=== PATIENT | male | born 1950 | race Caucasian/White ===

== ENCOUNTER 2024-04-08 08:26 | Observation (INO) ==
--- NOTE | 2024-03-12 16:09 | PAT Medication Instructions ---
Medication Instructions Date of Service March 12, 2024 Home Medications ibuprofen 200 mg tablet 200 - 600 mg PO Q6H PRN Pain imipramine HCl 10 mg tablet 10 mg PO PM magnesium citrate 100 mg tablet 100 mg PO DAILY metoprolol succinate 50 mg tablet,extended release 24 hr 50 mg PO QAM ropinirole 1 mg tablet 1 mg PO HS salmon oil 1,000 mg-omega-3 fatty acids 210 mg capsule 1 cap PO DAILY tamsulosin 0.4 mg capsule 0.8 mg PO QAM terazosin 5 mg capsule 5 mg PO PM tizanidine 2 mg tablet 2 mg PO Q8H PRN Spasms tramadol 50 mg tablet 50 mg PO HS ASK your surgeon for instructions ibuprofen 200 mg tablet 200 - 600 mg PO Q6H PRN Pain STOP taking 2 weeks before surgery salmon oil 1,000 mg-omega-3 fatty acids 210 mg capsule 1 cap PO DAILY DO NOT take the morning of surgery magnesium citrate 100 mg tablet 100 mg PO DAILY Take morning of surgery With a small sip of water, OTHERWISE NOTHING TO EAT OR DRINK AFTER MIDNIGHT: metoprolol succinate 50 mg tablet,extended release 24 hr 50 mg PO QAM tamsulosin 0.4 mg capsule 0.8 mg PO QAM tizanidine 2 mg tablet 2 mg PO Q8H PRN Spasms (if needed) Take evening before surgery imipramine HCl 10 mg tablet 10 mg PO PM ropinirole 1 mg tablet 1 mg PO HS terazosin 5 mg capsule 5 mg PO PM tizanidine 2 mg tablet 2 mg PO Q8H PRN Spasms (if needed) tramadol 50 mg tablet 50 mg PO HS Other Notes If you have any questions please call us at [phone] or [phone] or [phone] or [phone]
--- NOTE | 2024-03-20 13:02 | Anesthesiology Consultation ---
Date of Service March 20, 2024 Assessment & Plan (1) Encounter for pre-operative examination: Plan - abnormal CXR: awaiting S PCP response to optimization form. PAT testing to be faxed to PCP. Patient contacted and denies any chest discomfort, shortness of breath, change when laying flat-states he feels completely at baseline. He states will contact his PCP in addition to our fax regarding further review/management of abnormal CXR. Surgeon's office made aware. Chart Review Chart Review: Pending: Refer to Additional Notes / Consult section and Patient seen in Pre Admission Testing Teaching & Discussion Pre-Anesthesia Teaching/Discussion Notes: Instructed NPO after midnight before surgery, except medications with 15 cc of water. Medication instructions provided according to the PAT guidelines. History Surgery Operation Date: 04/08/24 10:00 Proposed Procedures p Right Reverse Total Shoulder Arthroplasty - Óscar Elkins, Height/Weight Height: 5 ft 10 in Weight: 117.5 kg Allergies Allergy/AdvReac Type Severity Reaction Status Date / Time [id number] Reductase Allergy Intermediate Cramping Verified 03/11/24 11:21 Inhibitor of the Muscles Medications Home Medications Medication Instructions Recorded Confirmed Last Taken ibuprofen 200 mg tablet 200 - 600 mg PO Q6H PRN Pain 03/11/24 03/11/24 Unknown imipramine HCl 10 mg tablet 10 mg PO PM 03/11/24 03/11/24 Unknown magnesium citrate 100 mg tablet 100 mg PO DAILY 03/11/24 03/11/24 Unknown metoprolol succinate 50 mg 50 mg PO QAM 03/11/24 03/11/24 Unknown tablet,extended release 24 hr ropinirole 1 mg tablet 1 mg PO HS 03/11/24 03/11/24 Unknown salmon oil 1,000 mg-omega-3 fatty 1 cap PO DAILY 03/11/24 03/11/24 Unknown acids 210 mg capsule tamsulosin 0.4 mg capsule 0.8 mg PO QAM 03/11/24 03/11/24 Unknown terazosin 5 mg capsule 5 mg PO PM 03/11/24 03/11/24 Unknown tizanidine 2 mg tablet 2 mg PO Q8H PRN Spasms 03/11/24 03/11/24 Unknown tramadol 50 mg tablet 50 mg PO HS 03/11/24 03/11/24 Unknown Past Medical History Medical History (Updated 03/20/24 @ 13:33 by Kelley Delaney PA-C) Anxiety Arthritis BPH (benign prostatic hyperplasia) Chronic back pain Depression History of kidney stones (~2004) passed on own Hyperlipidemia borderline per pt - no meds Hypertension controlled, stable per pt Sleep apnea no device Patient denies h/o stroke, seizures, heart attack, heart failure, DM, blood clots/DVTs or blood transfusions. Exercise / Class Metabolic Activity II 4-5 Yardwork/Stairs/Walk up hill (denies chest discomfort or shortness of breath with one flight of stairs) Past Surgical History Surgical History History of carpal tunnel release right History of colonoscopy History of tooth extraction S/P epidural steroid injection L4 and L5 Past Anesthesia History No Hx of Anesthesia Complications and No Family Hx of Anesthesia Complications History of PONV No Hx of PONV and No Hx of Motion Sickness Social History Smoking Status: Former smoker Do You Dip or Chew Tobacco: No (quit 50 yrs ago) Smoking End Date: age 19 Hx Alcohol Use: Yes alcohol intake frequency: holidays/special occasions only Hx Substance Use: No substance use type: does not use Review of Systems Patient denies chest pain, shortness of breath, dyspnea on exertion, reflux, fever, chills, cough, wheezing, or palpitations. Physical Exam Vital Signs Vitals BP 127/59 P 91 TEMP 97.7 SP02 94% on RA RESP 19 Physical Patient resting comfortably in chair in no acute distress, alert and oriented, responding appropriately throughout visit Full cervical extension range of motion without pain TMD 3.5 finger breadths Mallampati Score 2 Dentition: one crown, denies chipped or loose teeth, caps, implants or bridges Lungs: normal respiratory effort. Good air movement, clear throughout to auscultation, no adventitious breath sounds Cardiac: regular rate and rhythm, no murmurs noted Carotid arteries: negative bruit bilat Lab Results Anesthesia Preop Results Results Anesthesia Widget: WBC 7.27 K/ul (4.8-10.8) 03/20/24 Hgb 14.7 g/dl (14.0-18.0) 03/20/24 Hct 42.3 % (42.0-52.0) 03/20/24 Plt 166 K/uL (130-400) 03/20/24 Na 140 mmol/L (136-145) 03/20/24 K 4.6 mmol/L (3.5-5.1) 03/20/24 Cl 105 mmol/L (98-107) 03/20/24 CO2 30 mmol/L (21-32) 03/20/24 BUN 19 mg/dl (6-23) 03/20/24 Creat 0.94 mg/dl (0.6-1.4) 03/20/24 Glucose Level 133 mg/dl (70-99(Fasting)) H 03/20/24 PT 10.9 Seconds (9.0-12.0) 03/20/24 PTT 28 Seconds (21-31) 03/20/24 INR 1.0 (0.9-1.1) 03/20/24 Blood Type O Positive 03/20/24 Antibody Screen NEGATIVE 03/20/24 Testing Electrocardiogram Date: 03/20/24 NSR, rate 73 bpm Chest X-Ray Date: 03/20/24 Atelectatic bands in right lung lower zone Lobulated appearance of both francisco raising the suspicion of lymph nodes. Bilateral hilar and perihilar vascular congestion also seen Blunting of left costophrenic angle likely due to pleural thickening/effusion. Ultrasound is advised Stress Test Date: 01/23/23 MPHR 100% METS 8 Negative for inducible ischemia EF 55-59% Moderate cLVH Grade II diastolic dysfunction Mildly calcified aortic valve, mildly reduced aortic valve opening without aortic stenosis
[~2024-04-08 08:26] MED LIST: BUPIVACAINE 0.5 % 5 MG/1 ML PF 10ML VIAL ONE
[2024-04-08] MEDS: LR 60ML/HR IV SCH (08:35)
[2024-04-08] MEDS: LACTATED RINGER'S 1,000 ML IV SCH (08:35)
[2024-04-08] MEDS: GABAPENTIN 300 MG CAP PO SCH (08:36)
[2024-04-08] MEDS: FAMOTIDINE 20 MG TAB PO SCH (08:36)
[2024-04-08] MEDS: ACETAMINOPHEN 500 MG TAB PO SCH ×2 (08:36→13:59)
[2024-04-08] MEDS: dexAMETHasone**PF** 10 MG/ML VIAL IV SCH (08:36)
--- OUTSIDE RECORDS SUMMARY | 2024-04-08 09:25 | External Medical Summary | Summary of Care ---
Author Name Unknown Organization [facility] [address] [facility] [address] Phone [phone] Care Team Providers Care Rn Rehabilitation Name Role Phone Neida Smalls DO Primary Care Provider [phone] Encounter Details Date Type Department Care Team (Late st Contact Info) Description [facility]29[facility]2024 [facility] [address] [phone] Álvaro Machado PA-C [address] [place] [address] Allergies Active Allergy Reactions Criticality Noted Date Comments Lisinopril Cough 06/04/2009 Cough Perflutren Lipid Microspheres Other (Please comment) Medium 01/23/2023 Pt with long-standing chronic lower back pain had acute episode of back pain during a stress echo that included the use of Definity (perflutren). Pt stated that this episode was different than his usual lower back pain. Pain resolved completely within several minutes. Statins 03/15/2019 documented as of this encounter (statuses as of 04/04/2024) Medications Nutritional Supplements (SALMON OIL) CAPS Take by mouth daily. 9 Active Ibuprofen 200 MG Oral Tablet Take 3 Tablets by mouth every 6 hours as needed. Active Meloxicam 15 MG Oral Tablet (Mobic) Take 1 Tablet by mouth in the morning. 90 Tablet 1 4 Active tiZANidine HCl 2 MG Oral Tablet (Zanaflex)Indica tions:Restless legs,Lumbar radicular pain TAKE 1 TABLET BY MOUTH NEEDED AT BEDTIME FOR MUSCLE SPASM. 90 Tablet 1 4 Active Terazosin HCl 5 MG Oral Capsule (Hytrin)Indicati ons:HTN, goal below 130/80 Take 1 Capsule by mouth in the morning. Every morning.. 90 Capsule 3 4 Active Imipramine HCl 10 MG Oral Tablet (Tofranil)Indica tions:BABS (generalized anxiety disorder) Take 1 Tablet by mouth at bedtime. 90 Tablet 3 4 Active Metoprolol Succinate ER 50 MG Oral Tablet Extended Release 24 Hour (toPROL XL)Indications:H TN, goal below 130/80 Take 1 Tablet by mouth in the morning. In the morning.. 90 Tablet 3 4 Active rOPINIRole HCl 1 MG Oral Tablet (Requip)Indicati ons:Restless legs Take 1 Tablet by mouth at bedtime. 90 Tablet 3 4 Active Tamsulosin HCl 0.4 MG Oral Capsule (Flomax)Indicati ons:BPH with obstruction/lowe r urinary tract symptoms Take 2 Capsules by mouth in the morning. 180 Capsule 3 4 Active traMADol HCl 50 MG Oral Tablet (Ultram)Indicati ons:Lumbar radicular pain Take 2 Tablets by mouth 2 times a day as needed for Pain, Moderate. Dx M54.16 120 Tablet 5 5 Active documented as of this encounter (statuses as of 04/04/2024) Active Problems Problem Noted Date Diagnosed Date Moderate aortic valve stenosis 05/04/2022 BABS (generalized anxiety disorder) 10/10/2018 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 Cyst of kidney, acquired 12/10/2013 Dyslipidemia 11/22/2013 Overview (10/13/2017): 10/13/2017: declines statin, "caused him problems in the past" HTN, goal below 130/80 11/22/2013 documented as of this encounter (statuses as of 04/04/2024) Resolved Problems Problem Noted Date Diagnosed Date Resolved Date 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 07/12/2016 Other specified disorder of gallbladder 11/22/2013 07/12/2016 Psychosexual dysfunction wit h inhibited sexual excitement 11/22/2013 07/12/2016 documented as of this encounter (statuses as of 04/04/2024) Immunizations Name Administration Dates Next Due COVID-19 mRNA, LNP-s, No Pre serve, 2-Dose Series (Moderna) 07/19/2021,12/02/2020,04/09/2020,03/13 COVID-19, MRNA-LNP, PF, 50 M CG/0.5 mL, 12 YRS AND ABOVE, IM (MODERNA-Spikevax) 12/20/2022 Covid-19 Rs-nanoparticle+mat dian-m1, Adjuvant, (Novavax) 12/05/2023 Pneumococcal Conjugate Vacc, 13 Valent (Prevnar) 10/08/2019,01/19/2016 Pneumococcal Polysaccharide PPV23 (Pneumovax) 09/21/2017,05/23/2012 Season Influenza, Quad, PF, Adjuvanted, 65+ Yrs, IM (FLUAD) 10/08/2019 Seasonal Influenza Vac., MDV , IM, 0.5 mL (Fluzone) 12/05/2012,11/23/2011,11/18/2010 Seasonal Influenza Virus Vac cine, Unspecified Formulation 11/14/2017 Seasonal Influenza, PF, 6 M & above, IM , (FluLaval or Fluzone) 10/10/2018 Seasonal Influenza, Quadriva lent Hd (Fluzone Hd) 11/10/2022,11/01/2021,11/17/2020 Seasonal Influenza, Trivalen t, Adjuvanted, 65+ YRS, PF, (Fluad) 12/05/2023 TDAP (age 10 and older)(Boostrix) 10/24/2019 TDAP, Age 7 and older, IM (Adacel) 06/10/2008 Varicella Zoster Vaccine (Adult) 02/18/2011 Zoster Vaccine Recombinant (Shingrix) 07/12/2022 ,05/04/2022 documented as of this encounter Social History Tobacco Use Types Packs/Day Years Used Date Smoking Tobacco: Never Passive Smoke Exposure: Never Smokeless Tobacco: Never Alcohol Use Standard Drinks/Week Comments Yes 0 (1 standard drink = 0.6 oz pur e alcohol) occasional beer 1-3 a year PHQ-2 Answer Date Recorded PHQ Adult Total Score 1 02/06/2024 Hunger Vital Sign Answer Date Recorded Within the past 12 months, y ou worried that your food would run out before you got the money to buy more. Never true 02/05/20 24 Within the past 12 months, t he food you bought just didn't last and you didn't have money to get more. Never true 02/05/2024 Childcare Answer Date Recorded Do you feel overwhelmed with taking care of a child, family member or friend? No 02/05/2024 Does your family need help f inding childcare? (Household - for ages 0-17 years) Not on file 02/05/2024 Clothing Answer Date Recorded Have you been unable to get clothing when it was really needed? No 02/05/2024 Is your family able to get c lothes or diapers when needed? (Household - for ages 0-17 years) Not on file 02/05/2024 Personal Safety Answer Date Recorded Do you feel unsafe or have concerns for your saf ety? No 02/05/2024 Do you have concerns for you r family's safety? (Household - for ages 0-17 years) Not on file 02/05/2024 Utilities Answer Date Recorded Do you have trouble paying y our heating, water, or electric bill? No 02/05/2024 Is your family able to pay t he heat, water, or electric bill? (Household - for ages 0-17 years) Not on file 02/05/2024 Does your family have access to good internet? (Household - for ages 0-17 years) Not on file 02/05/2024 Employment Status Answer Date Recorded Are you unemployed or without regular income? No 02/05/2024 Does the household have a re lar source of income? (Household - for ages 0-17 years) Not on file 02/05/2024 Social Connections Answer Date Recorded How often do you feel lonely or isolated from th ose around you? Never 02/05/2024 Financial Resource Strain Answer Date R ecorded Do you have any trouble payi ng for your medications, or do you think you might in the future? No 02/05/2024 Does your family have troubl e paying for medicine? (Household - for ages 0-17 years) Not on file 02/05/2024 Transportation Needs Answer Date Record ed Do you have trouble getting a ride to medical visits or work? (Adult - for ages 18 years and over) Not on file 02/05/2024 Does your family have a hard time getting a ride to doctors visits? (Household - for ages 0-17 years) Not on file 02/05/2024 Has lack of transportation k ept you from medical appointments, meetings, work, or from getting things needed for daily living? Check all that apply. No 02/05/2024 Do you (or your family) have trouble finding or paying for a ride (transportation)? (Household - for ages 0-17 years) Not on file 02/05/2024 Housing Stability Answer Date Recorded Do you currently live in a s helter or have no steady place to sleep at night? No 02/05/2024 Do you think you are at risk of becoming homeless? (Adult - for ages 18 years and over) Not on file 02/05/2024 Does your family worry about paying for your home or becoming homeless? (Household - for ages 0-17 years) Not on file 1 Are you homeless or worried that you might be in the future? No 02/05/2024 Are you (or your family) maria del carmen eless or worried that you might be in the future? (Household - for ages 0-17 years) Not on file Food Insecurity Answer Date Recorded Do you need food for this week? No 02/05/2024 Are you able to get enough f ood for your family? (Household - for ages 0-17 years) Not on file 02/05/2024 Does your family need food t his week? (Household - for ages 0-17 years) Not on file 02/05/2024 Do you always have enough fo od for your family? (Household - for ages 0-17 years) Not on file 02/05/2024 Food Insecurity Answer Date Recorded Within the past 12 months, y ou worried that your food would run out before you got the money to buy more. Never true 02/05/20 24 Within the past 12 months, t he food you bought just didn't last and you didn't have money to get more. Never true 02/05/2024 Do you need food for this week? No 02/05/2024 Sex and Gender Information Value Date Recorded Sex Assigned at Male 10/10/2018 8:37 AM EDT Legal Sex Male 6:34 AM EST Gender Identity Male 10/10/2018 8:37 AM EDT Sexual Orientation Straight 10/10/2018 8: 37 AM EDT Occupation Industry Job Start Date Job End Date Retired Not on file Not on file Not on file documented as of this encounter Miscellaneous Notes * Telephone Encounter - Neida Small OSA - 04/01/2024 3:48 PM EST Done 04/01/2024 * Telephone Encounter - Tyler Tate OSA - 03/29/2024 1:03 PM EST Called LMOM to call back to schedule * Telephone Encounter - Álvaro Machado PA-C - 03/29/2024 7:39 AM EST Please assist in scheduling chest CT. This is needed in order for clearance for shoulder surgery currently scheduled 04/08/24. documented in this encounter Plan of Treatment Upcoming Encounters Date Type Department Care Team (Latest Contact Info) Description 05/24/2024 7:53 AM EDT Hospital Encounter [facility] [address] [place], [place] [address] [phone] Stiven Mortensen, [address] [place] [phone] 05/24/2024 7:53 AM EDT - 05/24/2024 8:14 AM EDT Surgery OR [facility], Operating Room [facility] [address] [place] [address] [place] [phone] Stiven Mortensen, [address] [place] [phone] INJECTION SPINE LUMBAR OR SACRAL 08/08/2024 10:40 AM EDT Office Visit [facility] [address] [place] [address] Obie Pacheco MD [address] [place] [phone] 09/18/2024 1:50 PM EDT Office Visit Dermatology, [facility] [address] [place] [address] Anjelica Allen PA-C [address] [address] Scheduled Procedures Name Priority Associated Diagnoses Date/Ti me INJECTION SPINE LUMBAR OR SACRAL Lumbar radiculopathy 05/24/2024 7:53 AM EDT Health Maintenance Due Date Last Done Comments Cologuard 1994 Sigmoidoscopy 1994 Fecal Occult Blood Test 01/18/2017 01/19/2016, 12/23 Adult Wellness Visit 09/21/2021 09/21/2020 Depression Screening 02/05/2025 02/06/2024 GFR 03/20/2025 03/20/2024, 04/0 06/2023, 11/10/2022, Additional history exists Albumin/Creatinine Ratio 05/11/2026 05/12/2023, 05/07 Lipid Panel 08/30/2028 08/31/2023, 04/0 06/2023, 11/10/2022, Additional history exists DTap/Tdap Vaccines (3 - Td or Tdap) 10/23/2029 10/24/2019, 06/10/2008 Colonoscopy 05/26/2031 05/25/2021, 05/25/2021 Colorectal Cancer Screening 05/26/2031 Pneumococcal Vaccine: 50+ Years Completed 10/08/2019, 09/21/2017, 01/19/2016, Additional history exists Zoster Vaccines Completed 07/12/2022, 04/07, 02/18/2011 COVID-19 Vaccine Discontinued 12/05/2023, , 07/19/2021, Additional history exists Influenza Vaccine (FLU shot) Completed 12/05/2023, 11/10/2022, 11/01/2021, Additional history exists HPV (Gardasil) Vaccine Aged Out No lo nger eligible based on patient's age to complete this topic Hepatitis B Vaccine Aged Out No longe r eligible based on patient's age to complete this topic MENINGOCOCCAL (MENACTRA/MENVEO) Aged Out No longer eligible based on patient's age to complete this topic Meningitis B Vaccine (Bexsero/Trumemba) Aged Out No longer eligible based on patient's age to complete this topic documented as of this encounter Medical Devices Not on filedocumented as of this encounter Care Teams Rn Rehabilitation Relationship Specialty Start Date End Date Neida Smalls DO [address] [phone] PCP - General Family Medicine 10/15/19 documented as of this encounter
--- OUTSIDE RECORDS SUMMARY | 2024-04-08 09:25 | External Medical Summary | Summary of Care ---
Author Name Unknown Organization [facility] Address [address] [facility] [address] Phone [phone] Care Team Providers Care Glass Breaker Name Role Phone Neida Smalls DO Primary Care Provider [phone] Reason for Referral * Precert (Within 10 days (routine)) - Authorized Specialty Diagnoses / Procedures Referred By Contac t Referred To Contact Radiology Diagnoses Abnormal chest x-ray Procedures CT CHEST WO CONTRAST Álvaro Machado PA-C [address] [address] Phone: tel: fax: Referral ID Status Reason Start Date Expiration Date V isits Requested Visits Authorized [id number] Authorized 03/29/2024 999 999 Reason for Visit * Reason Comments pre-op exam Patient is here for a preop exam for R shoulder replacement on 04/08/[address] Elkins at [facility]. Encounter Details Date Type Department Care Team (Late st Contact Info) Description 03/27/2024 9:40 AM EST Office Visit [facility] Sherif Barcenas [address] [phone] Álvaro Machado PA-C [address] [address] Preop examination*; Osteoarthritis of right shoulder, unspecified osteoarthritis type; At risk for sleep apnea; Abnormal chest x-ray Allergies Active Allergy Reactions Criticality Noted Date [...] 02/05/2024 Does the household have a re gular source of income? (Household - for ages [...] on file documented as of this encounter Last Filed Vital Signs Vital Sign Reading Time Taken Comments Blood Pressure 128/77 03/27/2024 9:44 AM EST Pulse 67 03/27/2024 9:44 AM EST Temperature 36.7 C (98 F) 03/27/2024 9:44 AM EST Respiratory Rate 18 03/27/2024 9:44 AM EST Oxygen Saturation 99% 03/27/2024 9:44 AM EST Inhaled Oxygen Concentration - - Weight 116.9 kg (257 lb 11.2 oz) 03/27/2024 9:44 AM EST Height - - Body Mass Index 36.98 02/06/2024 9:16 AM EST documented in this encounter Nursing Notes * Bonnie Brown LPN - 03/27/2024 9:44 AM EST The patient has been properly identified by confirmation of name and date of . Chief Complaint Patient presents with pre-op exam Patient is here for a preop exam for R shoulder replacement on 04/08/[address] Elkins at [facility]. documented in this encounter Plan of Treatment Upcoming Encounters Date Type Department Care Team (Latest Contact Info) Description 05/24/2024 7:53 AM EDT Hospital Encounter OR OSHP, Operating Room OSHP [address] [place] [address] [place] [address] Stiven Mortensen, [address] [place] [phone] 05/24/2024 7:53 AM EDT - 05/24/2024 8:14 AM EDT Surgery OR OS, Operating Room [address] [place] [address] Stiven Mortensen, [address] [place] [phone] INJECTION SPINE LUMBAR OR SACRAL 08/08/2024 10:40 AM EDT Office Visit Family [facility] [address] [address] Obie Pacheco MD [address] [place] [address] 09/18/2024 1:50 PM EDT Office Visit Dermatology, [facility] [address] [address] Anjelica Allen PA-C [address] [address] Scheduled Procedures Name Priority Associated Diagnoses Date/Ti me INJECTION SPINE LUMBAR OR SACRAL Lumbar radiculopathy 05/24/2024 7:53 AM EDT Health Maintenance Due Date Last Done Comments Cologuard 1994 Sigmoidoscopy 1994 Fecal Occult Blood Test 01/18/2017 01/19/2016, 12/23 Adult Wellness Visit 09/21/2021 09/21/2020 Depression Screening 02/05/2025 02/06/2024 GFR 03/20/2025 03/20/2024, 04/0 06/2023, 11/10/2022, Additional history exists Albumin/Creatinine Ratio 05/11/2026 05/12/2023, 04/1 04/2021 Lipid Panel 08/30/2028 08/31/2023, 04/0 06/2023, 11/10/2022, [...] Not on filedocumented as of this encounter Procedures Procedure Name Priority Date/Time Associated Diagnosis Comments CT CHEST WO CONTRAST Routine 04/01/2024 2:32 PM EST Abnormal chest x-ray XR CHEST 2 VIEWS Routine 03/27/2024 10:3 3 AM EST Preop examination documented in this encounter Results * CT CHEST WO CONTRAST (04/01/2024 2:32 PM EST) Anatomical Region Laterality Modality Chest, Body, Cardio Computed Noah ography 04/04/2024 1:41 AM EST Impressions 04/04/2024 1:39 AM EST IMPRESSION: 1. No evidence of pneumonia, pulmonary edema, or pulmonary fibrosis. 2. No pleural effusion, pneumothorax or appreciable pleural thickening. Prominent left pericardial fat pad and minimal adjacent atelectasis could result in recent chest radiographic finding. 3. Additional findings as above. Narrative 04/04/2024 1:39 AM EST EXAM EXAM: CT CHEST WO CONTRAST DATE and TIME: 04/01/2024 2:32 pm HISTORY Abnormal CXR - blunting left costophrenic angle; preop clearance TECHNIQUE Contiguous CT sections of the chest obtained without contrast material from the lung apices to the upper abdomen. Subsequent coronal, sagittal, and maximal intensity post-processed reformations were created on the CT workstation. COMPARISON XR CHEST 2 VIEWS, ACC: [id number], dated 2024-03-27 10:33:44; POINT OF CARE US MAJOR JOINT INJECTION, ORTHO, ACC: [id number], dated 2022-02-21 11:08:23; CT ABD_PELVIS WO IV_ORAL CONTRAST, ACC: [id number], dated 2021-11-10 21:39:36 FINDINGS Note: Evaluation of viscera and vessels limited in the absence of IV contrast. LINES AND DEVICES: None. Chest Wall and Lower Neck: There is a 10 millimeter peripherally calcified left thyroid nodule. Mediastinum and lymph nodes: No thoracic adenopathy by CT size criteria. Evaluation of hilar lymphadenopathy is limited in the absence of IV contrast. No mediastinal mass. Cardiovascular: Moderate aortic valve and coronary artery calcification. No significant pericardial effusion. Prominent left pericardial fat pad and minimal adjacent atelectasis, e.g. 6-64.. Lung, Airways and Pleura: No focal consolidation or geographic groundglass. No honeycombing. No pneumothorax or pleural effusion. The central airways are patent. Minimal linear scarring in the right lower lobe 10-156 likely sequela prior infection/inflammation. Upper Abdomen: Partially visualized Bosniak 2 right renal cyst with calcified septae as before. Hepatic steatosis. Bones: No acute fracture, malalignment or focal osseous destruction. Procedure Note Óscar Samson MD - 04/04/2024 EXAM EXAM: CT CHEST WO CONTRAST DATE and TIME: 04/01/2024 2:32 pm HISTORY Abnormal CXR - blunting left costophrenic angle; preop clearance TECHNIQUE Contiguous CT sections of the chest obtained without contrast materialfrom the lung apices to the upper abdomen. Subsequent coronal, sagittal,and maximal intensity post-processed reformations were created on the CTworkstation. COMPARISON XR CHEST 2 VIEWS, ACC: [id number], dated 2024-03-27 10:33:44; POINT OF CARE US MAJOR JOINT INJECTION, ORTHO, ACC: [id number], [id number] 11:08:23; CT ABD_PELVIS WO IV_ORAL CONTRAST, ACC: [id number], dated 1926-26-3720:39:36 FINDINGS Note: Evaluation of viscera and vessels limited in the absence of IVcontrast. LINES AND DEVICES: None. Chest Wall and Lower Neck: There is a 10 millimeter peripherally calcifiedleft thyroid nodule. Mediastinum and lymph nodes: No thoracic adenopathy by CT size criteria.Evaluation of hilar lymphadenopathy is limited in the absence of IVcontrast. No mediastinal mass. Cardiovascular: Moderate aortic valve and coronary artery calcification.No significant pericardial effusion. Prominent left pericardial fat padand minimal adjacent atelectasis, e.g. 6-64.. Lung, Airways and Pleura: No focal consolidation or geographicgroundglass. No honeycombing. No pneumothorax or pleural effusion. Thecentral airways are patent. Minimal linear scarring in the right lowerlobe 10-156 likely sequela prior infection/inflammation. Upper Abdomen: Partially visualized Bosniak 2 right renal cyst withcalcified septae as before. Hepatic steatosis. Bones: No acute fracture, malalignment or focal osseous destruction. IMPRESSION IMPRESSION: 1. No evidence of pneumonia, pulmonary edema, or pulmonary fibrosis. 2. No pleural effusion, pneumothorax or appreciable pleural thickening.Prominent left pericardial fat pad and minimal adjacent atelectasis couldresult in recent chest radiographic finding. 3. Additional findings as above. us Rea L MacNamara PA-C RAD CT Final Res ult * XR CHEST 2 VIEWS (03/27/2024 10:33 AM EST) Anatomical Region Laterality Modality Chest Digital Radiogra phy 03/27/2024 2:04 PM EST Impressions 03/27/2024 2:01 PM EST IMPRESSION No pulmonary consolidations. Minimal blunting of the left costophrenic angle noted which may be secondary to scarring or a trace pleural effusion. Narrative 03/27/2024 2:01 PM EST EXAM XR CHEST 2 VIEWS-03/27/2024 10:33 am HISTORY Preop COMPARISON None TECHNIQUE Chest x-ray two views FINDINGS The cardiomediastinal silhouette is normal in size. There are no pulmonary consolidations. Minimal blunting of the left costophrenic angle. There is no acute bone abnormality. Procedure Note Heidi Krueger MD - 03/27/2024 EXAM XR CHEST 2 VIEWS-03/27/2024 10:33 am HISTORY Preop COMPARISON None TECHNIQUE Chest x-ray two views FINDINGS The cardiomediastinal silhouette is normal in size. There are nopulmonary consolidations. Minimal blunting of the left costophrenicangle. There is no acute bone abnormality. IMPRESSION IMPRESSION No pulmonary consolidations. Minimal blunting of the left costophrenicangle noted which may be secondary to scarring or a trace pleuraleffusion. Ávlaro Machado PA-C RADIOLOGY (RAD GENERAL) F inal Result documented in this encounter Visit Diagnoses Diagnosis Preop examination- Primary Preoperative examination, unspecified Osteoarthritis of right shoulder, unspecified osteoarthritis type At risk for sleep apnea Abnormal chest x-ray Other nonspecific abnormal finding of lung field Lumbar radiculopathy Thoracic or lumbosacral neuritis or radiculitis, unspecified documented in this encounter Care Teams Glass Breaker Relationship Specialty Start Date End Date Neida Smalls DO [address] [place] [address] PCP - General Family Medicine 10/15/19 documented as of this encounter
--- OUTSIDE RECORDS SUMMARY | 2024-04-08 09:26 | External Medical Summary | Summary of Care ---
Author Name Unknown Organization [facility] Address [address] [facility] [address] Phone [phone] Care Team Providers Care Detective Bureau Chief Name Role Phone Neida Smalls DO Primary Care Provider [phone] Reason for Referral * Precert (Within 10 days (routine)) - Authorized Specialty Diagnoses / Procedures Referred By Contac t Referred To Contact Radiology Diagnoses Abnormal chest x-ray Procedures CT CHEST WO CONTRAST Álvaro Machado PA-C [address] [address] Phone: tel: fax: Referral ID Status Reason Start Date Expiration Date V isits Requested Visits Authorized [id number] Authorized 03/29/2024 999 999 Reason for Visit * Reason Comments pre-op exam Patient is here for a preop exam for R shoulder replacement on 04/08/[address] Elkins at [facility]. Encounter Details Date Type Department Care Team (Late st Contact Info) Description 03/27/2024 9:40 AM EST Office Visit [facility] Sherif Barcenas [address] [phone] Álvaro Machado PA-C [address] [address] Preop examination*; Osteoarthritis of right shoulder, unspecified [...] as of this encounter (statuses as of 03/29/2024) Medications Nutritional Supplements (SALMON OIL) CAPS Take [...] as of this encounter (statuses as of 03/29/2024) Active Problems Problem Noted Date Diagnosed Date Moderate aortic valve stenosis 05/04/2022 BABS (generalized anxiety disorder) 10/10/2018 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 Cyst of kidney, acquired 12/10/2013 Dyslipidemia 11/22/2013 Overview (10/13/2017): 10/13/2017: declines statin, "caused him problems in the past" HTN, goal below 130/80 11/22/2013 documented as of this encounter (statuses as of 03/29/2024) Resolved Problems Problem Noted Date Diagnosed Date Resolved Date 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 Elkins at [facility]. documented in this encounter Plan of Treatment Upcoming Encounters Date Type Department Care Team (Latest Contact Info) Description 05/24/2024 7:53 AM EDT Hospital Encounter OR OSHP, Operating Room OSHP [address] [place] [address] [place] [address] Stiven Mortensen, [address] [place] [phone] 05/24/2024 7:53 AM EDT - 05/24/2024 8:14 AM EDT Surgery OR OS, Operating Room [address] [place] [address] Stiven Mortensen, [address] [place] [phone] INJECTION SPINE LUMBAR OR SACRAL 08/08/2024 10:40 AM EDT Office Visit Family [facility] [address] [address] Obie Pacheco MD [address] [place] [address] 09/18/2024 1:50 PM EDT Office Visit Dermatology, [facility] [address] [address] Anjelica Allen PA-C [address] [id number] Scheduled Orders Name Type Priority Associated Diagnoses Orde r Schedule CT CHEST WO CONTRAST Medical Imaging Routine Abnormal chest x-ray Ordered: 03/29/2024 Scheduled Procedures Name Priority Associated Diagnoses Date/Ti [...] Procedure Name Priority Date/Time Associated Diagnosis Comments XR CHEST 2 VIEWS Routine 03/27/2024 10:3 3 AM EST Preop examination documented in this encounter Results * XR CHEST 2 VIEWS (03/27/2024 10:33 [...] secondary to scarring or a trace pleuraleffusion. Álvaro Machado PA-C RADIOLOGY (RAD GENERAL) F inal Result documented in this encounter Visit Diagnoses Diagnosis Preop examination- Primary Preoperative examination, unspecified Osteoarthritis of right shoulder, unspecified osteoarthritis type At risk for sleep apnea Abnormal chest x-ray Other nonspecific abnormal finding of lung field Lumbar radiculopathy Thoracic or lumbosacral neuritis or radiculitis, unspecified documented in this encounter Care Teams Detective Bureau Chief Relationship Specialty Start Date End Date Neida Smalls DO [address] [place] [address] PCP - General Family Medicine 10/15/19 documented as of this encounter
--- OUTSIDE RECORDS SUMMARY | 2024-04-08 09:26 | External Medical Summary | Summary of Care ---
Author Name Unknown Organization [facility] Address [address] [facility] [address] Phone [phone] Care Team Providers Care Superintendent Automotive Name Role Phone Neida Smalls DO Primary Care Provider [phone] Encounter Details Date Type Department Care Team (Late st Contact Info) Description 03/20/2024 Result Scan Unspecified Department <No scans attached> Allergies Active Allergy Reactions Criticality Noted Date [...] as of this encounter (statuses as of 03/25/2024) Medications Nutritional Supplements (SALMON OIL) CAPS Take [...] as of this encounter (statuses as of 03/25/2024) Active Problems Problem Noted Date Diagnosed Date Moderate aortic valve stenosis 05/04/2022 BABS (generalized anxiety disorder) 10/10/2018 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 Cyst of kidney, acquired 12/10/2013 Dyslipidemia 11/22/2013 Overview (10/13/2017): 10/13/2017: declines statin, "caused him problems in the past" HTN, goal below 130/80 11/22/2013 documented as of this encounter (statuses as of 03/25/2024) Resolved Problems Problem Noted Date Diagnosed Date Resolved Date 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 07/12/2016 Other specified disorder of gallbladder 11/22/2013 07/12/2016 Psychosexual dysfunction wit h inhibited sexual excitement 11/22/2013 07/12/2016 documented as of this encounter (statuses as of 03/25/2024) Immunizations Name Administration Dates Next Due COVID-19 [...] on file documented as of this encounter Plan of Treatment Upcoming Encounters Date Type Department Care Team (Late st Contact Info) Description 03/30/2024 8:00 AM EST Office Visit [facility] [address] [address] Sparkle Beckett PA-C [address] [place] [address] [place] [address] 08/08/2024 10:40 AM EDT Office Visit [facility] [address] [address] Obie Pacheco MD [address] [address] 09/18/2024 1:50 PM EDT Office Visit Dermatology, [facility] [address] [address] [address] Anjelica Allen PA-C [address] [address] Scheduled Procedures Name Priority Associated Diagnoses Date/Ti me INJECTION SPINE LUMBAR OR SACRAL Lumbar radiculopathy Health Maintenance Due Date Last Done Comments Cologuard 1994 Sigmoidoscopy 1994 Fecal Occult Blood Test 01/18/2017 01/19/2016, 12/23 Adult Wellness Visit 09/21/2021 09/21/2020 Depression Screening 02/05/2025 02/06/2024 GFR 03/20/2025 03/20/2024, 040 06/2023, 11/10/2022, Additional history exists Albumin/Creatinine Ratio 05/11/2026 05/12/2023, 1 04/2021 Lipid Panel 08/30/2028 08/31/2023, 04/0 06/2023, [...] Procedure Name Priority Date/Time Associated Diagnosis Comments EKG SCANNED RESULT 03/20/2024 documented in this encounter Results * EKG SCANNED RESULT (03/20/2024) 03/20/2024 us No Physician Data Unknown EKG Final Result documented in this encounter Care Teams Superintendent Automotive Relationship Specialty Start Date End Date Neida Smalls DO [address] [place] [address] PCP - General Family Medicine 10/15/19 documented as of this encounter
--- OUTSIDE RECORDS SUMMARY | 2024-04-08 09:26 | External Medical Summary | Summary of Care ---
Author Name Unknown Organization [facility] Address [address] [address] Phone [phone] Care Team Providers Care Costing Manager Name Role Phone Neida Smalls DO Primary Care Provider [phone] Encounter Details Date Type Department Care Team (Late st Contact Info) Description [facility] [address] [phone] Álvaro Machado [...] as of this encounter (statuses as of 04/02/2024) Medications Nutritional Supplements (SALMON OIL) CAPS Take [...] as of this encounter (statuses as of 04/02/2024) Active Problems Problem Noted Date Diagnosed Date Moderate aortic valve stenosis 05/04/2022 BABS (generalized anxiety disorder) 10/10/2018 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 Cyst of kidney, acquired 12/10/2013 Dyslipidemia 11/22/2013 Overview (10/13/2017): 10/13/2017: declines statin, "caused him problems in the past" HTN, goal below 130/80 11/22/2013 documented as of this encounter (statuses as of 04/02/2024) Resolved Problems Problem Noted Date Diagnosed Date Resolved Date 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 07/12/2016 Other specified disorder of gallbladder 11/22/2013 07/12/2016 Psychosexual dysfunction wit h inhibited sexual excitement 11/22/2013 07/12/2016 documented as of this encounter (statuses as of 04/02/2024) Immunizations Name Administration Dates Next Due COVID-19 [...] Hospital Encounter OR OSHP, Operating Room OSHP [address] [place], [place] [address] [phone] Stiven Mortensen, [address] [place] [address] 05/24/2024 7:53 AM EDT - 05/24/2024 8:14 AM EDT Surgery OR OSHP, Operating Room OSHP [address] [place] [address] [place] [phone] Stiven Mortensen, [address] [place] [phone] INJECTION SPINE LUMBAR OR SACRAL 08/08/2024 10:40 AM EDT Office Visit [facility] [address] [place] [address] Obie Pacheco MD [address] [place] [address] 09/18/2024 1:50 PM EDT Office Visit Dermatology, [facility] [address] [place] [address] Anjelica Allen PA-C [address] [address] Scheduled Procedures Name Priority Associated Diagnoses Date/Ti [...] filedocumented as of this encounter Care Teams Costing Manager Relationship Specialty Start Date End Date Neida Smalls DO [address] [address] PCP - General Family Medicine 10/15/19 documented as of this encounter
--- OUTSIDE RECORDS SUMMARY | 2024-04-08 09:26 | External Medical Summary | Summary of Care ---
Author Name Unknown Organization [facility] Address [address] [place] [facility] [place] [address] Phone [phone] Care Team Providers Care Floor Sweeper Name Role Phone Neida Smalls DO Primary Care Provider [phone] Reason for Visit * Precert (Within 10 days (routine)) - Authorized Specialty Diagnoses / Procedures Referred By Contac t Referred To Contact Radiology Diagnoses Abnormal chest x-ray Procedures CT CHEST WO CONTRAST Álvaro Machado, PA-C [address] [facility] [place] [address] Phone: tel: fax: Referral ID Status Reason Start Date Expiration Date V isits Requested Visits Authorized [id number] Authorized 03/29/2024 999 999 Encounter Details Date Type Department Care Team (Latest Contact Info) Description 04/01/2024 2:18 PM EST - 04/01/2024 11:59 PM EST Hospital Encounter Radiology, [address] [address] Arrived Discharge Disposition: Home - Self Care Allergies Active Allergy Reactions Criticality Noted Date [...] Hospital Encounter OR OSHP, Operating Room OSHP [address] [place] [phone] Stiven Mortensen, [address] [place] [phone] 05/24/2024 7:53 AM EDT - 05/24/2024 8:14 AM EDT Surgery OR OSHP, Operating Room OSHP [address] [place] [phone] Stiven Mortensen, [address] [place] [phone] INJECTION SPINE LUMBAR OR SACRAL 08/08/2024 10:40 AM EDT Office Visit Family [facility] [address] [place] [address] [place] [address] Obie Pacheco MD [address] [address] [address] 09/18/2024 1:50 PM EDT Office Visit Dermatology, [facility] [address] [place] [address] Anjelica Allen PA-C [address] [address] Pending Results Name Type Priority Associated Diagnoses Date /Time CT CHEST WO CONTRAST Medical Imaging Routine Abnormal chest x-ray 04/01/2024 2:32 PM EST Scheduled Procedures Name Priority Associated Diagnoses Date/Ti [...] filedocumented as of this encounter Care Teams Floor Sweeper Relationship Specialty Start Date End Date Neida Smalls DO [address] [address] PCP - General Family Medicine 10/15/19 documented as of this encounter
--- OUTSIDE RECORDS SUMMARY | 2024-04-08 09:26 | External Medical Summary | Summary of Care ---
Author Name Unknown Organization [facility] Address [address] [facility] [place] [place] [address] Phone [phone] Care Team Providers Care Mount Loader Name Role Phone Neida Smalls DO Primary Care Provider [phone] Reason for Visit * Reason Onset Date Comments Advice 03/28/2024 Encounter Details Date Type Department Care Team (Late st Contact Info) Description 03/28/2024 Telephone Family Practice [facility] [address] [place] [address] Neida Smalls DO [address] [place] [address] Advice Allergies Active Allergy Reactions Criticality Noted Date [...] as of this encounter (statuses as of 04/03/2024) Medications Nutritional Supplements (SALMON OIL) CAPS Take [...] as of this encounter (statuses as of 04/03/2024) Active Problems Problem Noted Date Diagnosed Date Moderate aortic valve stenosis 05/04/2022 BABS (generalized anxiety disorder) 10/10/2018 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 Cyst of kidney, acquired 12/10/2013 Dyslipidemia 11/22/2013 Overview (10/13/2017): 10/13/2017: declines statin, "caused him problems in the past" HTN, goal below 130/80 11/22/2013 documented as of this encounter (statuses as of 04/03/2024) Resolved Problems Problem Noted Date Diagnosed Date Resolved Date 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 Rhett does not know for sure what the call is in regards to but believes that it is in regards to a possible surgery fr this pt. documented in this encounter Plan of Treatment Upcoming Encounters Date Type Department Care Team (Latest Contact Info) Description 05/24/2024 7:53 AM EDT Hospital Encounter [facility], Operating Room [facility] [address] [place] [phone] Stiven Mortensen, [address] [place] [phone] 05/24/2024 7:53 AM EDT - 05/24/2024 8:14 AM EDT Surgery OR [facility], Operating Room [facility] [address] [place] [phone] Stiven Mortensen, [address] [place] [phone] INJECTION SPINE LUMBAR OR SACRAL 08/08/2024 10:40 AM EDT Office Visit Family Practice [facility] [address] [place] [address] Obie Pacheco MD [address] [phone] 09/18/2024 1:50 PM EDT Office Visit Dermatology, [facility] [address] [place] [address] Anjelica Allen PA-C [address] [place] [place] [address] Scheduled Procedures Name Priority Associated Diagnoses Date/Ti [...] filedocumented as of this encounter Care Teams Mount Loader Relationship Specialty Start Date End Date Neida Smalls DO [address] [place] [address] PCP - General Family Medicine 10/15/19 documented as of this encounter
--- OUTSIDE RECORDS SUMMARY | 2024-04-08 09:26 | External Medical Summary | Summary of Care ---
Author Name Unknown Organization [facility] Address [address] [facility] [place] [address] Phone [phone] Care Team Providers Care Gage Designer Name Role Phone Neida Smalls DO Primary Care Provider [phone] Encounter Details Date Type Department Care Team (Late st Contact Info) Description 03/25/2024 Orders Only Family Practice [facility] [address] [place] [address] Neida Smalls DO [address] [place] [address] Allergies Active Allergy Reactions Criticality Noted Date [...] No 02/05/2024 Does the household have a [facility] source of income? (Household - for ages [...] Description 03/30/2024 8:00 AM EST Office Visit [facility] [address] [place] [address] Sparkle Beckett PA-C [address] [place] [address] [place] [address] 08/08/2024 10:40 AM EDT Office Visit [facility] [address] [place] [address] Obie Pacheco MD [address] [place] [address] 09/18/2024 1:50 PM EDT Office Visit Dermatology, [facility] [address] [place] [address] Anjelica Allen PA-C [address] [place] [address] Scheduled Procedures Name Priority Associated Diagnoses Date/Ti [...] Procedure Name Priority Date/Time Associated Diagnosis Comments CHEMISTRY-OUTSIDE Routine 03/20/2024 documented in this encounter Results * (ABNORMAL) CHEMISTRY-OUTSIDE (03/20/2024) Not all results display below - see scan for full detail OUTSIDE LAB (SEE SCANNED REPORT) Comment:SEE SCAN - PTINR, BM P , CBCD CREATININE 0.94 0.6 - 1.4 MG/DL OUTSIDE LAB (SEE SCANNED REPORT) EGFR 85.07 ML/MIN OUTSIDE LA B (SEE SCANNED REPORT) POTASSIUM 4.6 3.5 - 5.1 MMOL/L OUTSIDE LAB (SEE SCANNED REPORT) GLUCOSE 133(A) 70 - 99 MG/DL OUTSIDE LAB (SEE SCANNED REPORT) HOURS FASTING OUTSID E LAB (SEE SCANNED REPORT) TRIGLYCERIDES-OUT SIDE LAB OUTSIDE LAB (SEE SCANNED REPORT) CHOLESTEROL-OUTSI DE LAB OUTSIDE LAB (SEE SCANNED REPORT) HDL-OUTSIDE LAB OUTS ASYA LAB (SEE SCANNED REPORT) CHOL/HDL RATIO-OUTSIDE LAB OUTSIDE LA B (SEE SCANNED REPORT) LDL (CALCULATED)-OUTS ASYA LAB OUTSIDE LAB (SEE SCANNED REPORT) LDL (DIRECT MEASURE)-OUTSIDE LAB OUTSIDE LAB (SEE SCANNED REPORT) HEMOGLOBIN, [id number] LAB OUTSIDE LAB (SEE SCANNED REPORT) PHOSPHORUS-OUTSID E LAB OUTSIDE LAB (SEE SCANNED REPORT) PTH-OUTSIDE LAB OUTS ASYA LAB (SEE SCANNED REPORT) MICROALBUMIN RATIO-OUTSIDE LAB OUTSIDE LA B (SEE SCANNED REPORT) PROTEIN, UA-OUTSIDE LAB OUTSIDE LAB (SEE SCANNED REPORT) HGB 14.7 14.0 - 18.0 G/DL OUTSIDE LAB (SEE SCANNED REPORT) 03/20/2024 us Óscar Elkins DO LABORATORY Final Res ult OUTSIDE LAB (SEE SCANNED REPORT) documented in this encounter Care Teams Gage Designer Relationship Specialty Start Date End Date Neida Smalls DO [address] [place] [address] PCP - General Family Medicine 10/15/19 documented as of this encounter
--- OUTSIDE RECORDS SUMMARY | 2024-04-08 09:26 | External Medical Summary | Summary of Care ---
Author Name Unknown Organization [facility] Address [address] [facility] [place] [address] Phone [phone] Care Team Providers Care Chief Clerk Name Role Phone Neida Smalls DO Primary Care Provider [phone] Encounter Details Date Type Department Care Team (Late st Contact Info) Description 03/25/2024 Orders Only Family Practice [facility] [address] [place] [address] Neida Smalls DO [address] [place] [address] Allergies Active Allergy Reactions Criticality Noted Date [...] No 02/05/2024 Does the [facility]? (Household - for ages [...] Description 03/30/2024 8:00 AM EST Office Visit [facility] [address] [place] [address] Sparkle Beckett PA-C [address] [place] [address] [place] [address] 08/08/2024 10:40 AM EDT Office Visit [facility] [address] [place] [address] Obie Pacheco MD [address] [place] [address] 09/18/2024 1:50 PM EDT Office Visit Dermatology, [facility] [address] [place] [address] Anjelica Allne PA-C [address] [place] [address] Scheduled Procedures Name Priority Associated Diagnoses Date/Ti [...] Diagnosis Comments XR CHEST 2 VIEWS Routine 03/20/2024 documented in this encounter Results * XR CHEST 2 VIEWS (03/20/2024) Anatomical Region Laterality Modality Chest Other 03/20/2024 us Óscar Elkins DO RADIOLOGY (RAD GENERAL) F inal Result documented in this encounter Care Teams Chief Clerk Relationship Specialty Start Date End Date Neida Smalls DO [address] [place] [address] PCP - General Family Medicine 10/15/19 documented as of this encounter
[2024-04-08] MEDS ORDERED: LIDOCAINE 2% 2 ML VIAL/AMP(20MG/ML) INFIL ONE (09:36)
[2024-04-08] MEDS ORDERED: ONDANSETRON INJ 2 MG/ML 2 ML VIAL ONE (09:36)
[2024-04-08] MEDS ORDERED: PROPOFOL IV EMULSION 10 MG/ML 20 ML VIAL IV ONE (09:36)
[2024-04-08] MEDS ORDERED: MIDAZOLAM HCL 1 MG/ML 2ML VIAL ONE (09:36)
[2024-04-08] MEDS ORDERED: fentaNYL citrate PF 100 MCG/2 ML VIAL ONE (09:36)
--- NOTE | 2024-04-08 10:07 | History & Physical Bridge Note ---
Date of Service April 08, 2024 History & Physical Bridge Note I have examined the patient, reviewed the History & Physical and in the interval since the performance of the History & Physical I have noted the following changes of clinical significance: no changes noted
[2024-04-08] MEDS ORDERED: ATROPINE SULFATE 0.1 MG/ML 10ML SYR IV PRN (10:33)
[2024-04-08] MEDS ORDERED: fentaNYL citrate PF 100 MCG/2 ML VIAL IV PRN (10:33)
[2024-04-08] MEDS ORDERED: ONDANSETRON INJ 2 MG/ML 2 ML VIAL IV PRN ×2 (10:33→13:13)
[2024-04-08] MEDS ORDERED: ePHEDrine sulfate 50 MG/ML AMP IV PRN (10:33)
[2024-04-08] MEDS: TRANEXAMIC ACID 1,000 MG **IV Pre-op IV SCH (10:38)
[2024-04-08] MEDS: ceFAZolin 2000MG 2,000 MG/15 ML SYR IV SCH ×2 (10:47→17:46)
[2024-04-08] MEDS ORDERED: ROCURONIUM BROMIDE 10 MG/ML 5 ML VIAL IV ONE (10:47)
[2024-04-08] MEDS ORDERED: ePHEDrine sulfate 50 MG/ML AMP ONE (11:05)
[2024-04-08] MEDS ORDERED: PHENYLEPHRINE 100MCG/ML 5ML SYR ONE (11:11)
[2024-04-08] MEDS: ROPIV 0.5% 246mg, Ketorolac 30mg, EPINEPHrine 0.5mg in NSS INFIL SCH (11:30)
[2024-04-08] MEDS: ORTHO JOINT ANESTHETIC ONE (11:31)
[2024-04-08] MEDS: TRANEXAMIC ACID 1,000 MG **IV Intra-op IV SCH (11:49)
[2024-04-08] MEDS ORDERED: SUGAMMADEX SODIUM 200 MG/2 ML VIAL IV ONE (11:50)
--- NOTE | 2024-04-08 11:52 | Operative Report ---
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 A tenodesis was opted. This was a separate and distinct portion of the procedure. For these reasons, a CPT code modifier 59 will be added to this case. Implants used: I used a [employer] Comprehensive reverse total shoulder arthroplasty system with a size 13 press fit micro humeral stem, a +3 offset humeral tray and a standard humeral bearing, a 25 mm small augment baseplate with a 6.5 mm central screw and superior and inferior locking screws, and a size 40 mm eccentric glenosphere. Jeff arrived at [facility] for the above procedure. He was seen in the preoperative holding area and the operative extremity was identified and signed. He was given a preoperative antibiotic, TXA, and an interscalene nerve block. He was taken back to the operating room, laid on table in supine position, and put under general anesthesia. He was then put into the beachchair position. The shoulder was then prepped and draped in sterile fashion. A timeout was done and the patient and the operative extremity was properly identified. A deltopectoral approach was used. Dissection was taken down through the fascia and the deltoid was retracted laterally and the conjoined tendon was retracted medially. The anterior shoulder was exposed. The biceps groove was opened up and the biceps tendon was examined extensively. The biceps tendon demonstrated enlargement and inflammatory changes consistent with longstanding inflammation in the context of osteoarthritis and cuff arthropathy. The long head of the biceps tendon was then tenodesed to the upper border of the pectoralis major. This was a separate and distinct portion of the procedure. The subscapularis was then directly released off the lesser tuberosity with a peel technique. The inferior capsule was released and the humeral head was dislocated. A canal finding reamer was sent down the center of the humeral canal. Sequential reaming up to a size 13 reamer was done. Off that reamer, a proximal humeral resection guide was placed. The proximal humerus was resected at 135 of inclination and 25 of retroversion. Osteophytes were then removed and the glenoid was exposed. Time was spent doing a complete capsular and labral release. The glenoid guide was then placed in the inferior aspect of the glenoid. A 3.2 mm Steinmann pin was then placed into the glenoid vault at 10 of inclination. The glenoid baseplate was then reamed. The final size 25 mm small augment baseplate was then impacted in the place. A 6.5 mm central screw was then placed followed by superior and inferior locking screws. A 40 mm eccentric glenosphere was then impacted into place. Surrounding soft tissues were then injected with 100 cc an orthopedic pain control cocktail. The proximal humerus was then exposed. Sequential broaching of the humerus up to a size 13 broach was done. Off that broach a +3 offset humeral tray was trialed. The shoulder was then reduced, brought through a full range of motion, and felt to be stable. The shoulder was then dislocated and the broach was removed. The final size 13 micro press-fit humeral stem was then impacted into place. A standard humeral bearing was then snapped onto a +3 offset humeral tray. The humeral tray was then impacted onto the humeral stem. The shoulder was once again reduced, brought through a full range of motion, and felt to be stable. The subscapularis was retracted and unable to be repaired. A dilute betadyne lavage was then done for 3 minutes. The joint was then irrigated with normal saline solution. Hemostasis was obtained. The interval was closed with 2-0 Vicryl suture. The skin was then closed with 2-0 Vicryl and sharon. A Silverlon dressing was placed and the arm was rested in a regular arm sling. He was then extubated and transferred to a hospital bed. He taken to the postanesthesia care unit in stable condition. He tolerated the procedure well. Tad Mckeon PA-C, was present for the entire procedure. He was critical for patient positioning, prepping, draping, retraction exposure, wound closure and application of sterile dressing. I attest to the content of the Intraoperative Record and any orders documented therein. Any exceptions are noted below.
--- NOTE | 2024-04-08 12:54 | Anesthesiology Progress Note ---
Date of Service April 08, 2024 Anesthesia Post Procedure Vital Signs Vital Signs: Temp Pulse Resp BP Pulse Ox O2 Del Method O2 Flow Rate 04/08/24 12:45 36.5 C 71 19 129/65 95 Nasal Cannula 2 04/08/24 12:35 74 16 118/59 L 94 Nasal Cannula 2 04/08/24 12:25 73 17 113/60 97 Oxymask 7 04/08/24 12:15 37.0 C 81 12 116/60 96 Oxymask 7 04/08/24 08:20 36.6 C 66 20 147/78 H 95 Room Air Pain Intensity Right Shoulder: Pain Intensity: 7 Transfer of Care Handoff Completed per policy Notes Mental Status: alert / awake / arousable Patient Amnestic to Procedure: Yes Nausea / Vomiting: adequately controlled Pain: adequately controlled Airway Patency, RR, SpO2: stable & adequate BP & HR: stable & adequate Hydration State: stable & adequate Anesthetic Complications: no major complications apparent and Pt Satisfied with anesthetic care
[2024-04-08] MEDS ORDERED: HYDROmorphone INJ 0.5 MG/0.5 ML SYR IV PRN (13:13)
[2024-04-08] MEDS ORDERED: METOCLOPRAMIDE HCL INJ 5 MG/ML 2 ML VIAL IV PRN (13:13)
[2024-04-08] MEDS ORDERED: MAGNESIUM HYDROXIDE SUSP 30 ML UDC PO PRN (13:13)
[2024-04-08] MEDS ORDERED: NALOXONE HCL 0.4 MG/1 ML VIAL/CARP IV PRN (13:13)
[2024-04-08] MEDS ORDERED: bisacodyL 10 MG SUPP PR PRN (13:13)
--- NOTE | 2024-04-08 13:14 | XRay Report ---
XR shoulder RT min 2V routine CLINICAL HISTORY: Post shoulder surgery COMPARISON: 03/20/2024 FINDINGS: Right shoulder prosthesis shows no hardware complication. There is expected soft tissue ga s. Skin sharon are present. IMPRESSION: Unremarkable postoperative exam. ACT 112: Negative or not required by law. Electronically signed by: Roddy Pop M.D. 04/08/2024 1:12 PM
[2024-04-08] MEDS: BUPIVACAINE LIPOSOME 1.3% 133 MG/10 ML VIAL ONE (13:26)
[2024-04-08] MEDS: KETOROLAC TROMETHAMINE 15 MG/ML VIAL IV SCH (14:00)
[2024-04-08] MEDS: oxyCODONE HCL IR 5 MG TAB (IMMEDIATE RELEASE) PO PRN (17:46)
[2024-04-08] MEDS: rOPINIRole HCL 1 MG TABLET PO SCH (19:50)
[2024-04-08] MEDS: TERAZOSIN HCL 5 MG CAP PO SCH (20:48)
[2024-04-08] MEDS: IMIPRAMINE HCL 10 MG TAB PO SCH (20:48)
[2024-04-08] MEDS: SENNA 8.6 MG TAB PO SCH (20:48)
[2024-04-08] MEDS: DOCUSATE SODIUM 100 MG CAP PO SCH (20:48)
[2024-04-09 04:41] VITALS: TEMP 97.7; O2SAT 94
[2024-04-09 08:06] VITALS: BP 122/69; PULSE 69; RESP 14
[2024-04-09] MEDS: METOPROLOL SUCC 50MG EXT REL TAB PO SCH (08:27)
[2024-04-09] MEDS: TAMSULOSIN HCL 0.4 MG CAP PO SCH (08:28)
[2024-04-09] MEDS: MULTIVITAMIN TAB PO SCH (08:28)
[2024-04-09] MEDS: dexAMETHasone 4 MG TAB PO SCH (09:12)
--- NOTE | 2024-04-09 09:30 | Orthopedic Progress Note ---
Date of Service April 09, 2024 Assessment & Plan (1) Status post reverse total replacement of right shoulder: Assessment: Status post right reverse total shoulder arthroplasty. Plan: Overall, he is doing quite well today with good pain control right shoulder. He will work with physical therapy later this morning to work on ambulation and range of motion exercises. He can be discharged home later this morning pending formal physical therapy evaluation recommendation. His Silverlon dressing will remain in place for 7 days. After 7 days, he may leave the surgical site open to air. He will follow-up with orthopedics in 2 weeks for continued postoperative management or sooner if needed. He verbalized understanding agrees with this plan. Subjective . Jeff was seen this morning resting comfortably no apparent distress. He notes that his pain is well-controlled to the right shoulder. He has been up and ambulating with no significant issues today. He has yet to work physical therapy this morning. He denies any concerns with surgical incision site. He denies any active bleeding, discharge, or signs of infection. He denies any other concerns today. Review of Systems All systems reviewed & are unremarkable except as noted in HPI & below. Physical Exam . On physical examination of the right shoulder, the dressing is clean, dry, intact with no active signs of bleeding, discharge, or signs infection. He is wearing his sling as directed. He has full range of motion at the elbow, wrist, and all 5 digits. +2 radial pulse. Less than 2-second capillary refill. Normal sensation. Neurovascular intact Results & Data Results & Data Laboratory Results . Diagnostic Findings . Shoulder X-Ray 04/08/24 12:17 XR shoulder RT min 2V routine CLINICAL HISTORY: Post shoulder surgery COMPARISON: 03/20/2024 FINDINGS: Right shoulder prosthesis shows no hardware complication. There is expected soft tissue gas. Skin sharon are present. IMPRESSION: Unremarkable postoperative exam. ACT 112: Negative or not required by law. Electronically signed by: Roddy Pop M.D. 04/08/2024 1:12 PM PG Care Time/CCT Total # of Minutes Spent Total Time Spent with Patient: Total time spent is greater than 50% in coordination of care (as documented) at patient's floor/unit and/or counseling patient: Coding Level of Care Code 52876 Post Operative Follow-Up Diagnoses Status post reverse total replacement of right shoulder Z96.611
--- NOTE | 2024-04-09 09:32 | Discharge Summary ---
Date of Service April 09, 2024 Principal Diagnosis Same as "Discharge Diagnosis" noted below under Discharge Instructions. Discharge Exam . On physical examination of the right shoulder, the dressing is clean, dry, intact with no active signs of bleeding, discharge, or signs infection. He is wearing his sling as directed. He has full range of motion at the elbow, wrist, and all 5 digits. +2 radial pulse. Less than 2-second capillary refill. Normal sensation. Neurovascular intact Discharge Data Procedures Performed Operation Date: 04/08/24 10:30 Actual Procedures p Right Reverse Total Shoulder Arthroplasty(Right) - Óscar Elkins DO Ordered Studies 04/08/24 05:00 US - OR guided needle placemen Routine Hospital Course (1) Status post reverse total replacement of right shoulder: On April 08, 2024 oseas arrived at [facility] and underwent a right reverse total shoulder arthroplasty performed by Dr. Elkins with no complications. He had a general anesthetic. Postoperatively, he was transferred to the PACU for immediate postoperative management and then to the general orthopedic floor in stable condition. His hospital course was uneventful. On postoperative day #1, his vital signs were stable and his pain was well-controlled. He participated well physical therapy working on range of motion exercises. He was then discharged home in stable condition. He will follow-up with orthopedics in 2 weeks for continued postoperative management or sooner if needed. PG Care Time/CCT Total # of Minutes Spent Total Time Spent with Patient: Total time spent is greater than 50% in coordination of care (as documented) at patient's floor/unit and/or counseling patient: Discharge Plan Discharge Items Patient Disposition: Home - Self-Care Reason For Visit: Right Shoulder Arthritis Discharge Diagnosis: Right shoulder replacement Activity: Per Instructions section Non-emergency contact: Surgeon Call non-emergency contact if: your wound has increased redness and your wound has increased drainage Follow-up/Referrals: Neida Smalls DO [Primary Care Provider] - Diet: Regular Addtl Attending Provider Instructions: Activity and Therapy Recommendations: * If you are using [facility] then therapy will be provided at your home until they feel you have accomplished all of your goals. * If you are using [facility] then Physical Therapy will be provided until they feel you are ready to start Outpatient Physical Therapy. * If you are not using home therapy then Outpatient Physical Therapy should start about 3-5 days from your day of surgery. Therapy will last about 8-12 weeks * Wear your sling for 3 weeks, unless otherwise instructed. You may remove your sling to shower and to dress, but otherwise, you should be in your sling at all times, including while sleeping * The shoulder replacement is very stable and you can use your hand while in the sling * You were shown a series of exercises in the hospital. Do these exercises daily including the exercises you were shown in physical therapy. Medications: * Narcotic You will likely be sent home from the hospital with a prescription for the narcotic pain medication that worked best throughout your stay. * Cefadroxil -take the antibiotic twice a day for 10 days to help prevent infection. * Other medications may be prescribed for specific circumstances. If you have any questions, please call the office at . * Resume previous home medications unless otherwise instructed Dressing Care: Leave the Silverlon dressing in place for 7 days. After 7 days you may remove the dressing. If the incision is not draining then you may leave the sharon open to air. If there is a little bit of drainage or if the sharon are getting stuck on your clothing then cover the incision with a dry dressing. The sharon will be removed at your 2 week follow-up appointment. Showering: You may shower with the Silverlon dressing in place. Do not let the shower spray hit the dressing directly. Pat the Silverlon dressing dry. If the dressing becomes wet underneath, then simply remove the dressing. Keep the incision dry until you are 7 days out from the day of surgery. After 7 days you may remove the Silverlon dressing and shower with the sharon exposed. Let soapy water run over the sharon and pat them dry. Do not scrub or soak the incision. Diet: You may resume your previous diet. Things To Watch For: * Drainage from the incision site that occurs more than one week after your surgery. * Increased redness at the incision site. * Fever above 102 degrees Fahrenheit. * Unusual chest pain or shortness of breath. * Call [facility] at with any of the above problems Follow-Up Visit: Follow-up with Dr. Elkins's office 2-3 weeks after your day of surgery. We will remove your sharon and answer any questions. If you have any additional questions or concerns, Dr Elkins is usually in the office at the same time and will be available An appointment was probably scheduled when you signed-up for surgery in the off ice. If you have any questions call More detailed instructions as well as Frequently Asked Questions were provided in a folder by our office when you signed-up for surgery. Please review these instructions when you get home. If you have any further questions or concerns, please feel free to call the office at [phone] Pending Studies at Discharge: No Stand-Alone Forms: My [facility], Smoking Cessation Medications and DC Order Prescriptions: New cefadroxil 500 mg capsule 500 mg PO BID 10 Days Qty: 20 0RF oxycodone 5 mg tablet 5 mg PO Q6H PRN (Reason: pain) Qty: 30 0RF Continued terazosin 5 mg Capsule 5 mg PO PM ropinirole 1 mg Tablet 1 mg PO HS Rx Instructions: administer 1-3 hours before bedtime metoprolol succinate 50 mg Tablet Extended Release 24 Hr 50 mg PO QAM tramadol 50 mg Tablet 50 mg PO HS imipramine HCl 10 mg Tablet 10 mg PO PM tizanidine 2 mg Tablet 2 mg PO Q8H PRN (Reason: Spasms) tamsulosin 0.4 mg Capsule 0.8 mg PO QAM ibuprofen 200 mg Tablet 200 - 600 mg PO Q6H PRN (Reason: Pain) magnesium citrate 100 mg Tablet 100 mg PO DAILY salmon oil-omega-3 fatty acids 1,000-210 mg Capsule 1 cap PO DAILY Discharge Orders: Discharge Order (Routine); Ordered 04/09/24 Ordered By: Azar Mckeon Admission Data Admit Date/Time: 04/08/24 12:17 Attending Provider: Óscar Elkins Admit Provider: Óscar Elkins Primary Care Provider: Neida Smalls
== END 2024-04-09 10:38 | disposition home or self-care (01) ==
LOC: ASU 08:26 → 3E 08:26
DX: Z87.891 Personal history of nicotine dependence; M75.101 Unspecified rotator cuff tear or rupture of right shoulder, not specified as traumatic; M75.21 Bicipital tendinitis, right shoulder; G47.33 Obstructive sleep apnea (adult) (pediatric); E78.5 Hyperlipidemia, unspecified; Z88.2 Allergy status to sulfonamides; Z79.899 Other long term (current) drug therapy; I10 Essential (primary) hypertension